=== PATIENT | female | born 1935 | race Caucasian/White ===

== ENCOUNTER 2017-02-03 16:17 | Inpatient (IN) | payer OTHER, MEDICARE ==
[~2017-02-03] VITALS: Ht 152.4 cm; Wt 65.9 kg
[2017-02-04] MEDS ORDERED: LEVO500T8 PO (10:19)
[2017-02-04] MEDS ORDERED: OMEP20TA PO (10:19)
[2017-02-04] MEDS ORDERED: LOVA20TA PO (10:19)
[2017-02-04] MEDS ORDERED: TRAM50TA PO (10:19)
[2017-02-04] MEDS ORDERED: LEVO50TA4 PO (10:19)
[2017-02-07] MEDS ORDERED: ROPIVACAINE PERI-ARTICULAR INJECTION. P-ARTICULR SCH ×5 (06:45)
[2017-02-07] MEDS ORDERED: CHLORHEXIDINE GLUCONATE 4% SOLN 120 ML BTL TOPICAL SCH (06:45)
[2017-02-07] MEDS ORDERED: DEXAMETHASONE SOD PHOS 20 MG/5 ML VIAL IV SCH (06:45)
[2017-02-07] MEDS ORDERED: TRANEXAMIC PERI-ARTICULAR 3,000 MG/NS 100 ML P-ARTICULR SCH ×2 (06:45)
[2017-02-07] MEDS ORDERED: LACTATED RINGER'S 1000 ML IV PRN (06:45)
[2017-02-07] MEDS ORDERED: METOPROLOL TARTRATE 25 MG TAB PO PRN (06:45)
[2017-02-07] MEDS ORDERED: POVIDONE IODINE 5% (ANTISEPSIS KIT) 4 APPLICATIONS EACH NARE PRN (06:45)
[2017-02-07] MEDS ORDERED: ceFAZolin 2 GM PREMIX 50 ML IV SCH (06:45)
[2017-02-07] MEDS ORDERED: CHLORHEXIDINE GLUCONATE 2 % 1 PACK (2 CLOTHS) TOPICAL PRN (06:45)
[2017-02-07] MEDS ORDERED: POVIDONE IODINE 7.5% SCRUB 118 ML BOTTLE TOPICAL SCH (06:45)
[2017-02-07] MEDS ORDERED: SODIUM CHLORID 0.9% 500 ML IV PRN (06:45)
[2017-02-07] MEDS ORDERED: VANCOMYCIN 1000 MG/NS 250 ML (for <70 kg) IV SCH ×2 (06:45)
[2017-02-07] MEDS ORDERED: TRANEXAMIC ACID INJ 870 MG in SODIUM CHLORIDE 0.9% INJ 100 ML IV SCH (06:45)
[2017-02-07] MEDS ORDERED: INSULIN HUMAN REGULAR 1,000 UNITS/10 ML VIAL SQ PRN (06:45)
[2017-02-07 06:58] VITALS: BP 117/78; PULSE 72; RESP 18; TEMP 98; O2SAT 96
[2017-02-07] MEDS ORDERED: ENOX40P SQ (06:59)
[2017-02-07] MEDS ORDERED: ASPI81CH37 CHEW (07:00)
[2017-02-07] MEDS ORDERED: NALOXONE HCL 0.4 MG/ML AMP IV PRN (07:00)
[2017-02-07] MEDS ORDERED: Post-op Orders (for Pharmacy) MISC XX ONE (07:00)
[2017-02-07] MEDS ORDERED: MORPHINE SULFATE 4 MG/ML INJ IV PUSH PRN (07:00)
[2017-02-07] MEDS ORDERED: SODIUM CHLORIDE 0.9% FLUSH 5 ML FLUSH IVF PRN (07:00)
[2017-02-07] MEDS ORDERED: diphenhydrAMINE HCL 50 MG/ML VIAL IV PRN (07:00)
[2017-02-07] MEDS ORDERED: ACETAMINOPHEN/HYDROcodone 325 MG/7.5 MG TAB PO PRN (07:00)
[2017-02-07] MEDS ORDERED: ZOLPIDEM TARTRATE 5 MG TAB PO PRN (07:00)
[2017-02-07] MEDS ORDERED: ONDANSETRON HCL 4 MG/2 ML VIAL IVP PRN (07:00)
[2017-02-07] MEDS ORDERED: BISACODYL 10 MG SUPP RECTAL PRN (07:00)
[2017-02-07] MEDS ORDERED: HYDR-3288 PO (07:01)
[2017-02-07] MEDS ORDERED: GENTAMICIN SULFATE 80 MG/2 ML VIAL ONE (07:34)
[2017-02-07 07:35] LABS: BLOOD, URINE NEG (NEG); COMMENT (UR) CULT NOT INDICATED; CULTURE IF INDICATED CULT NOT INDICATED; GLUCOSE,URINE NEG (NEG); KETONE, URINE 10 mg/dL (NEG); MUCUS URINE FEW /lpf (OCC); NITRITE,URINE NEG (NEG); PH, URINE 5.5 (5.0-8.5); SQUAMOUS EPITHELIAL CELL URINE <1 /hpf (0-5); URINE COLOR YELLOW (YELLW/STRAW)
[2017-02-07] MEDS ORDERED: MIDAZOLAM HCL 2 MG/2 ML VIAL ONE (08:02)
[2017-02-07] MEDS ORDERED: ACETAMINOPHEN 1000 MG/100 ML VIAL IV ONE (08:02)
[2017-02-07] MEDS ORDERED: FAMOTIDINE 20 MG/2 ML VIAL ONE (08:02)
[2017-02-07] MEDS ORDERED: BUPIVACAINE HCL PF 0.5% 30 ML VIAL NERV BLOCK ONE (08:52)
[2017-02-07] MEDS ORDERED: DEXAMETHASONE SOD PHOS PF 10 MG/ML VIAL IV ONE (08:52)
[2017-02-07] MEDS ORDERED: BUPIVACAINE LIPOSOME PF 1.3% 20 ML VIAL ONE (08:52)
[2017-02-07] MEDS ORDERED: ONDANSETRON HCL 4 MG/2 ML VIAL IV PUSH ONE (09:02)
[2017-02-07] MEDS ORDERED: LACTATED RINGER'S 1000 ML INJ 1,000 ML IV ONE (09:02)
[2017-02-07] MEDS ORDERED: PROPOFOL 200 MG/20 ML AMP IV ONE (09:02)
[2017-02-07] MEDS ORDERED: DO NOT ADM ANY ANTICOAGULANT DRUGS PRN (10:22)
[2017-02-07] MEDS: SODIUM CHLOR 0.9% 1000 ML INJ 1,000 ML IV SCH ×3 (10:45→19:55)
[2017-02-07] MEDS: SODIUM CHLORIDE 0.9% FLUSH 5 ML FLUSH IVF SCH ×2 (10:45→19:55)
--- NOTE | 2017-02-07 11:00 | RADRPT ---
EXAM DATE/TIME: 02/07/2017 10:42 [place] COMPARISON: No previous studies available for comparison. INDICATIONS : Post op right total knee replacement. MEDICAL HISTORY : Unobtainable. SURGICAL HISTORY : Unobtainable. ENCOUNTER: Initial ACUITY: 1 day PAIN SCORE: Non-responsive. LOCATION: Right knee. FINDINGS: Patient is status post placement of a right knee prosthesis. There is good position and alignment of the prosthesis and bony structures. The bony structures are grossly intact. Postsurgical changes are present. CONCLUSION: Good position and alignment on this postoperative examination. Renard Guo MD on February 07, 2017 at 10:57 Board Certified Radiologist. This report was verified electronically.
[2017-02-07] MEDS ORDERED: *MEPERIDINE 25 MG INJ VIAL PERIprocedural Use ONLY ONE (11:14)
[2017-02-07] MEDS ORDERED: *morphine SULFATE 8 MG/ML PERIprocedure ONLY ONE (12:19)
[2017-02-07 13:49] VITALS: BP 103/62; PULSE 79; RESP 20; TEMP 96.5; O2SAT 95
--- NOTE | 2017-02-07 13:51 | PD.CONS ---
[facility] By Dr. Serna Reason for Consult Medical management Primary Care Physician Patrick Dickey MD Diagnoses: History of Present Illness This is a 81-year-old female with a history of right knee pain secondary to osteoarthritis. She underwent elective total knee arthroplasty with nerve block by Dr. Robbin Serna who requested consultation to evaluate and manage multiple medical conditions. Anesthesia record reviewed shows she received 1200 and mild crystalloid, EBL 150 mL and urine output of 300 mL. At this time , she complains of minimal right knee pain which is on a CPM. She still feels numb on her toes. Denies nausea. All other systems reviewed negative patient states she has hyperlipidemia controlled on lovastatin, hypothyroidism stable on Synthroid, GERD stable on Prilosec and abnormal urinalysis and has been taking Levaquin for the past 4 days. She denies UTI symptoms. Initial urinalysis shows over 40 WBC and grew enterococcus species less than 50,000 colonies. Repeat urinalysis with WBC of 4 Review of Systems Except as stated in HPI: all other systems reviewed are Neg Past Family Social History Allergies: Coded Allergies: No Known Allergies (Unverified , 02/07/17) Past Medical History As previously mentioned. She is hard of hearing Past Surgical History Denies Reported Medications As previously mentioned Family History CVA Social History She does not smoke and drink alcohol Physical Exam Vital Signs Vital Signs Date Time Temp Pulse Resp B/P Pulse Ox O2 Delivery O2 Flow Rate FiO2 02/07/17 12:00 64 16 100/59 96 Room Air 02/07/17 11:45 16 100 02/07/17 11:30 68 16 113/55 100 Nasal Cannula 2 02/07/17 11:15 70 16 106/60 100 Nasal Cannula 2 02/07/17 11:00 70 16 101/64 100 Nasal Cannula 2 02/07/17 10:45 72 16 95/53 100 Nasal Cannula 2 02/07/17 10:30 80 16 92/51 99 Nasal Cannula 2 02/07/17 10:28 98.0 78 16 97/55 94 Nasal Cannula 2 02/07/17 06:58 98.0 72 18 117/78 96 Physical Exam GENERAL: This is a well-nourished, well-developed patient, in no apparent distress. Hard of hearing SKIN: No rashes, ecchymoses or lesions. Cool and dry. HEAD: Atraumatic. Normocephalic. No temporal or scalp tenderness. EYES: Pupils equal round and reactive. Extraocular motions intact. No scleral icterus. No injection or drainage. ENT: Nose without bleeding, purulent drainage or septal hematoma. Throat without erythema, tonsillar hypertrophy or exudate. Uvula midline. Airway patent. NECK: Trachea midline. No JVD or lymphadenopathy. Supple, nontender, no meningeal signs. CARDIOVASCULAR: Regular rate and rhythm without murmurs, gallops, or rubs. RESPIRATORY: Clear to auscultation. Breath sounds equal bilaterally. No wheezes , rales, or rhonchi. GASTROINTESTINAL: Abdomen soft, non-tender, nondistended. No guarding. MUSCULOSKELETAL: Extremities without clubbing, cyanosis, or edema. Right lower extremity with dry clean dressing on a CPM NEUROLOGICAL: Awake and alert. Cranial nerves II through XII intact. Motor and sensory grossly within normal limits. Five out of 5 muscle strength in all muscle groups. Normal speech. Laboratory Outside labs reviewed glucose 101 20 creatinine of 0.65 sodium 141 potassium 4.3 white count of 5.5 hemoglobin 13.2 platelet count of 172 INR 1 EKG tracing interpreted by me with sinus bradycardia Laboratory Tests Test 02/07/17 02/07/17 02/07/17 02/07/17 06:40 06:50 08:40 09:55 Urine Color YELLOW Urine Turbidity CLEAR Urine pH 5.5 Urine Specific [place] 1.022 Urine Protein TRACE Urine Glucose (UA) NEG Urine Ketones 10 Urine Occult Blood NEG Urine Nitrite NEG Urine Bilirubin NEG Urine Urobilinogen LESS THAN 2.0 Urine Leukocyte Esterase MOD Urine RBC 1 Urine WBC 4 Urine Squamous Epithelial <1 Cells Urine Mucus FEW Microscopic Urinalysis Comment CULT NOT INDICATED Blood Type B POSITIVE B POSITIVE Antibody Screen POSITIVE Crossmatch Leukocyte-Reduced Red Blood Cells Blood Bank Comment Antibody Identification Non-Specific Agglutinin Imaging Last Impressions Knee X-Ray 02/07/17 0657 Signed Impressions: Service Date/Time: Tuesday, February 07, 2017 10:42 - CONCLUSION: Good position and alignment on this postoperative examination. Renard Guo MD Assessment and Plan Assessment and Plan This is a 81-year-old female with a history of right knee pain secondary to osteoarthritis. She underwent elective total knee arthroplasty with nerve block by Dr. Robbin Serna. Stable continue postoperative care with pain management with Lortab and IV morphine, wound care, PT and DVT prophylaxis with Lovenox. Monitor for anemia CBC will be repeated in the morning. Hyperlipidemia controlled on lovastatin. We'll continue statin Hypothyroidism stable on Synthroid GERD stable on Prilosec Abnormal urinalysis. Asymptomatic. Initial urinalysis shows over 40 WBC and grew enterococcus species less than 50,000 colonies. Repeat urinalysis with WBC of 4. We will hold off with Levaquin. Discussed Condition With Patient and nursing staff Kwame Monroe MD Feb 07, 2017 13:51
--- NOTE | 2017-02-07 15:15 | PD.ORT.PN ---
Objective Vitals Vital Signs Date Time Temp Pulse Resp B/P Pulse Ox O2 Delivery O2 Flow Rate FiO2 02/07/17 13:49 96.5 79 20 103/62 95 02/07/17 12:00 64 16 100/59 96 Room Air 02/07/17 11:45 16 100 02/07/17 11:30 68 16 113/55 100 Nasal Cannula 2 02/07/17 11:15 70 16 106/60 100 Nasal Cannula 2 02/07/17 11:00 70 16 101/64 100 Nasal Cannula 2 02/07/17 10:45 72 16 95/53 100 Nasal Cannula 2 02/07/17 10:30 80 16 92/51 99 Nasal Cannula 2 02/07/17 10:28 98.0 78 16 97/55 94 Nasal Cannula 2 02/07/17 06:58 98.0 72 18 117/78 96 I/O 02/06/17 02/06/17 02/06/17 02/07/17 02/07/17 02/07/17 07:00 15:00 23:00 07:00 15:00 23:00 Intake Total 50 ml Output Total 250 ml Balance -200 ml Intake IV Total 50 ml Output Urine Total 250 ml Imaging Last 24 hours Impressions Knee X-Ray 02/07/17 0657 Signed Impressions: Service Date/Time: Tuesday, February 07, 2017 10:42 - CONCLUSION: Good position and alignment on this postoperative examination. Renard Guo MD Assessment & Plan Ortho Post Op Day #: 0 Problem List: Assessment and Plan s/p R TKA wbat daily dressing changes lovenox d/c planning home vs snf f/up dr eubanks 2 weeks Robbin Vera Feb 07, 2017 15:15
--- NOTE | 2017-02-07 15:17 | HHI.DCPOC ---
Discharge Care Plan Diagnosis: (1) Primary localized osteoarthrosis, lower leg Your Health Problems Are: Difficulty with ADL Goals to Promote Your Health * To prevent worsening of your condition and complications * To maintain your health at the optimal level Directions to Meet Your Goals Take your medications as prescribed Follow your dietary instruction Follow activity as directed Keep your appointments as scheduled Take your immunizations and boosters as scheduled If your symptoms worsen call your PCP, if no PCP go to Urgent Care Center or Emergency Room Smoking is Dangerous to Your Health. Avoid second hand smoke Call the 24-hour hour crisis hotline for domestic abuse at Robbin Vera Feb 07, 2017 15:17
--- NOTE | 2017-02-07 15:18 | HHI.FF ---
Face to Face Verification Diagnosis: (1) Primary localized osteoarthrosis, lower leg Physical Therapy Gait training, Safety evaluation, Transfer training, bed to chair Knee: Total knee, Protocol: Right, Full weight bearing Right LE Weight Bearing: WB as tolerated Nursing RN: 3 days/week x 2 weeks Nursing: Linda teaching, Dressing changes Dressing Changes: Daily dressing change I have seen patient Fior Ashby on 02/07/17. My clinical findings support the need for the requested home health care services because: Limited ability to care for self High risk of falls I certify that my clinical findings support that this patient is homebound because: Post-op weakness Unsteady gait/balance Robbin Vera Feb 07, 2017 15:18
[2017-02-07] MEDS ORDERED: CPMMACHINE (15:19)
[2017-02-07] MEDS ORDERED: WALKER WHEELS/F1 MIS (15:19)
[2017-02-07] MEDS ORDERED: COMMODE 3-IN-11 MIS (15:19)
[2017-02-07 16:00] VITALS: BP 93/57; PULSE 75; RESP 20; TEMP 95.8; O2SAT 95
[2017-02-07] MEDS: ACETAMINOPHEN/HYDROcodone 325 MG/7.5 MG TAB PO PRN (17:24)
[2017-02-07 20:00] VITALS: BP 90/53; PULSE 57; RESP 16; TEMP 96.6; O2SAT 94
[2017-02-08] VITALS: BP 94/56; PULSE 52; RESP 16; TEMP 96.2; O2SAT 94
[2017-02-08 04:00] VITALS: BP 106/67; PULSE 64; RESP 16; TEMP 96.9; O2SAT 97
[2017-02-08 04:51] LABS: HEMATOCRIT 32.6 % (35.0-46.0); MEAN CELL VOLUME 93.4 FL (80.0-100.0); MEAN CORPUSCULAR HEMOGLOBIN 31.9 PG (27.0-34.0); MEAN CORPUSCULAR HGB CONC 34.1 % (32.0-36.0); PLATELET COUNT 206 TH/MM3 (150-450); RED BLOOD COUNT 3.49 MIL/MM3 (4.00-5.30); RED CELL DISTRIBUTION WIDTH 14.3 % (11.6-17.2); REVIEW FLAG FINAL; WHITE BLOOD COUNT 11.3 TH/MM3 (4.0-11.0)
[2017-02-08 05:03] LABS: BICARBONATE 22.2 MEQ/L (21.0-32.0); POTASSIUM 4.1 MEQ/L (3.5-5.1)
[2017-02-08] MEDS: LEVOTHYROXINE SODIUM 50 MCG TAB PO SCH (05:30)
[2017-02-08] MEDS: ACETAMINOPHEN/HYDROcodone 325 MG/7.5 MG TAB PO PRN ×5 (05:30→21:55)
[2017-02-08] MEDS: MAGNESIUM HYDROXIDE SUSP 30 ML CUP PO PRN ×2 (05:30→21:54)
[2017-02-08 08:00] VITALS: BP 105/63; PULSE 53; RESP 18; TEMP 96.2; O2SAT 94
[2017-02-08] MEDS: SODIUM CHLORIDE 0.9% FLUSH 5 ML FLUSH IVF SCH ×2 (09:00→21:57)
[2017-02-08] MEDS: PANTOPRAZOLE SOD 20 MG DELAYED RELEASE TAB PO SCH (09:18)
[2017-02-08] MEDS: ENOXAPARIN SODIUM 40 MG/0.4 ML SYRINGE SQ SCH (09:18)
--- NOTE | 2017-02-08 10:14 | HHI.PR ---
Subjective Remarks Follow-up orthopedic surgery. States she is doing okay ambulating. Discussed with RN Objective Vitals Vital Signs Date Time Temp Pulse Resp B/P Pulse Ox O2 Delivery O2 Flow Rate FiO2 02/08/17 08:00 96.2 53 18 105/63 94 02/08/17 04:00 96.9 64 16 106/67 97 02/08/17 00:00 96.2 52 16 94/56 94 02/07/17 20:00 96.6 57 16 90/53 94 02/07/17 16:00 95.8 75 20 93/57 95 02/07/17 13:49 96.5 79 20 103/62 95 02/07/17 12:00 64 16 100/59 96 Room Air 02/07/17 11:45 16 100 02/07/17 11:30 68 16 113/55 100 Nasal Cannula 2 02/07/17 11:15 70 16 106/60 100 Nasal Cannula 2 02/07/17 11:00 70 16 101/64 100 Nasal Cannula 2 02/07/17 10:45 72 16 95/53 100 Nasal Cannula 2 02/07/17 10:30 80 16 92/51 99 Nasal Cannula 2 02/07/17 10:28 98.0 78 16 97/55 94 Nasal Cannula 2 I/O 02/07/17 02/07/17 02/07/17 02/08/17 02/08/17 02/08/17 07:00 15:00 23:00 07:00 15:00 23:00 Intake Total 50 ml 1077 ml 1115 ml Output Total 250 ml 825 ml 650 ml Balance -200 ml 252 ml 465 ml Intake Oral 240 ml 120 ml IV Total 50 ml 837 ml 995 ml Output Urine Total 250 ml 825 ml 650 ml # Bowel Movements 0 Result Diagram: 02/08/17 0359 02/08/17 0359 Imaging Last Impressions Knee X-Ray 02/07/17 0657 Signed Impressions: Service Date/Time: Tuesday, February 07, 2017 10:42 - CONCLUSION: Good position and alignment on this postoperative examination. Renard Guo MD Objective Remarks GENERAL: This is a well-nourished, well-developed patient, in no apparent distress. Hard of hearing SKIN: No rashes, ecchymoses or lesions. Cool and dry. HEAD: Atraumatic. Normocephalic. No temporal or scalp tenderness. EYES: Pupils equal round and reactive. Extraocular motions intact. No scleral icterus. No injection or drainage. ENT: Nose without bleeding, purulent drainage or septal hematoma. Throat without erythema, tonsillar hypertrophy or exudate. Uvula midline. Airway patent. NECK: Trachea midline. No JVD or lymphadenopathy. Supple, nontender, no meningeal signs. CARDIOVASCULAR: Regular rate and rhythm without murmurs, gallops, or rubs. RESPIRATORY: Clear to auscultation. Breath sounds equal bilaterally. No wheezes , rales, or rhonchi. GASTROINTESTINAL: Abdomen soft, non-tender, nondistended. No guarding. MUSCULOSKELETAL: Extremities without clubbing, cyanosis, or edema. NEUROLOGICAL: Awake and alert. Cranial nerves II through XII intact. Motor and sensory grossly within normal limits. Five out of 5 muscle strength in all muscle groups. Normal speech. A/P Assessment and Plan This is a 81-year-old female with a history of right knee pain secondary to osteoarthritis. She underwent elective total knee arthroplasty with nerve block by Dr. Robbin Serna. Stable continue postoperative care with pain management with Lortab and IV morphine, wound care, PT and DVT prophylaxis with Lovenox. Postoperative anemia secondary to acute blood loss . Asymptomatic. Repeat CBC in the morning Hyperlipidemia controlled on lovastatin. We'll continue statin Hypothyroidism stable on Synthroid GERD stable on Prilosec Hyperglycemia. Obtain A1c Abnormal urinalysis. Asymptomatic. Initial urinalysis shows over 40 WBC and grew enterococcus species less than 50,000 colonies. Repeat urinalysis with WBC of 4. Discontinue Levaquin. Discharge Planning Discharge per orthopedic surgery Kwame Monroe MD Feb 08, 2017 10:14
--- NOTE | 2017-02-08 10:27 | PD.ORT.PN ---
Subjective Subjective Remarks Patient comfortable. Pain controlled. OOB sitting on recliner. Objective Vitals Vital Signs Date Time Temp Pulse Resp B/P Pulse Ox O2 Delivery O2 Flow Rate FiO2 02/08/17 08:00 96.2 53 18 105/63 94 02/08/17 04:00 96.9 64 16 106/67 97 02/08/17 00:00 96.2 52 16 94/56 94 02/07/17 20:00 96.6 57 16 90/53 94 02/07/17 16:00 95.8 75 20 93/57 95 02/07/17 13:49 96.5 79 20 103/62 95 02/07/17 12:00 64 16 100/59 96 Room Air 02/07/17 11:45 16 100 02/07/17 11:30 68 16 113/55 100 Nasal Cannula 2 02/07/17 11:15 70 16 106/60 100 Nasal Cannula 2 02/07/17 11:00 70 16 101/64 100 Nasal Cannula 2 02/07/17 10:45 72 16 95/53 100 Nasal Cannula 2 02/07/17 10:30 80 16 92/51 99 Nasal Cannula 2 02/07/17 10:28 98.0 78 16 97/55 94 Nasal Cannula 2 I/O 02/07/17 02/07/17 02/07/17 02/08/17 02/08/17 02/08/17 07:00 15:00 23:00 07:00 15:00 23:00 Intake Total 50 ml 1077 ml 1115 ml Output Total 250 ml 825 ml 650 ml Balance -200 ml 252 ml 465 ml Intake Oral 240 ml 120 ml IV Total 50 ml 837 ml 995 ml Output Urine Total 250 ml 825 ml 650 ml # Bowel Movements 0 Result Diagram: 02/08/17 0359 02/08/17 0359 Imaging Last 24 hours Impressions Knee X-Ray 02/07/17 0657 Signed Impressions: Service Date/Time: Tuesday, February 07, 2017 10:42 - CONCLUSION: Good position and alignment on this postoperative examination. Renard Guo MD Objective Remarks Right knee dressing and ashleigh wrap C/D/I calves soft negative Homans NVI Assessment & Plan Assessment and Plan s/p R TKA POD #1 wbat daily dressing changes lovenox d/c planning home vs snf ( pt requesting to go Home) f/up dr eubanks 2 weeks Luis Fernando Luciano Feb 08, 2017 10:27
[2017-02-08 12:00] VITALS: BP 98/57; PULSE 70; RESP 20; TEMP 97.8; O2SAT 91
[2017-02-08] MEDS: SODIUM CHLOR 0.9% 1000 ML INJ 1,000 ML IV SCH ×2 (13:00→21:56)
[2017-02-08 16:00] VITALS: BP 86/48; PULSE 77; RESP 19; TEMP 97.5; O2SAT 93
[2017-02-08 19:07] LABS: HEMOGLOBIN A1a 1.2 %; HEMOGLOBIN A1b 1.8 %; HEMOGLOBIN Ao 84.1 %; HEMOGLOBIN LA1C 1.9 %; HEMOGLOBIN P3 4.1 %
[2017-02-08 19:10] VITALS: BP 102/51; PULSE 68; RESP 18; TEMP 98.2; O2SAT 92
[2017-02-08] MEDS: MULTIVITAMINS/MINERALS THERAPEUTIC TAB PO SCH (21:54)
[2017-02-08] MEDS: DOCUSATE SODIUM 100 MG CAP PO SCH (21:55)
[2017-02-09 00:06] VITALS: BP 104/64; PULSE 73; RESP 17; TEMP 98.5; O2SAT 96
[2017-02-09] MEDS: ACETAMINOPHEN/HYDROcodone 325 MG/7.5 MG TAB PO PRN ×3 (03:14→12:01)
[2017-02-09 03:58] VITALS: BP 101/52; PULSE 82; RESP 17; TEMP 98.1; O2SAT 92
[2017-02-09] MEDS: LEVOTHYROXINE SODIUM 50 MCG TAB PO SCH (05:11)
[2017-02-09 08:00] VITALS: BP 123/70; PULSE 68; RESP 18; TEMP 97.8; O2SAT 93
--- NOTE | 2017-02-09 08:06 | PD.ORT.PN ---
Subjective Post Op Day #: 2 Subjective Remarks pain tolerable with meds. Objective Vitals Vital Signs Date Time Temp Pulse Resp B/P Pulse Ox O2 Delivery O2 Flow Rate FiO2 02/09/17 03:58 98.1 82 17 101/52 92 02/09/17 00:06 98.5 73 17 104/64 96 02/08/17 19:10 98.2 68 18 102/51 92 02/08/17 18:40 Room Air 02/08/17 16:00 97.5 77 19 86/48 93 02/08/17 12:00 97.8 70 20 98/57 91 I/O 02/08/17 02/08/17 02/08/17 02/09/17 02/09/17 02/09/17 07:00 15:00 23:00 07:00 15:00 23:00 Intake Total 1115 ml 480 ml 898 ml 977 ml Output Total 650 ml Balance 465 ml 480 ml 898 ml 977 ml Intake Oral 120 ml 480 ml 360 ml 360 ml IV Total 995 ml 538 ml 617 ml Output Urine Total 650 ml # Voids 2 3 # Bowel Movements 1 Result Diagram: 02/08/17 0359 02/08/17 0359 Imaging Last 24 hours Impressions Knee X-Ray 02/07/17 0657 Signed Impressions: Service Date/Time: Tuesday, February 07, 2017 10:42 - CONCLUSION: Good position and alignment on this postoperative examination. Renard Guo MD Objective Remarks in bed, nad incision no erythema, no drainage calves soft negative Homans NVI Assessment & Plan Ortho Post Op Day #: 2 Problem List: Assessment and Plan s/p R TKA POD #2 wbat daily dressing changes lovenox d/c planning home with [facility] and pt - cleared today if pain under control after PT rx in chart f/up dr eubanks 2 weeks Robbin Vera Feb 09, 2017 08:06
--- NOTE | 2017-02-09 08:54 | HHI.PR ---
Subjective Remarks Follow-up orthopedic surgery and hyperglycemia. She is doing okay cleared for discharge by orthopedic surgery. Still no BM by passing gas. Patient made aware of A1c 6.2 need to cut down on carbohydrates and start regular exercise discussed with RN Objective Vitals Vital Signs Date Time Temp Pulse Resp B/P Pulse Ox O2 Delivery O2 Flow Rate FiO2 02/09/17 03:58 98.1 82 17 101/52 92 02/09/17 00:06 98.5 73 17 104/64 96 02/08/17 19:10 98.2 68 18 102/51 92 02/08/17 18:40 Room Air 02/08/17 16:00 97.5 77 19 86/48 93 02/08/17 12:00 97.8 70 20 98/57 91 I/O 02/08/17 02/08/17 02/08/17 02/09/17 02/09/17 02/09/17 07:00 15:00 23:00 07:00 15:00 23:00 Intake Total 1115 ml 480 ml 898 ml 977 ml Output Total 650 ml Balance 465 ml 480 ml 898 ml 977 ml Intake Oral 120 ml 480 ml 360 ml 360 ml IV Total 995 ml 538 ml 617 ml Output Urine Total 650 ml # Voids 2 3 # Bowel Movements 1 Result Diagram: 02/08/17 0359 02/08/17 0359 Imaging Last Impressions Knee X-Ray 02/07/17 0657 Signed Impressions: Service Date/Time: Tuesday, February 07, 2017 10:42 - CONCLUSION: Good position and alignment on this postoperative examination. Renard Guo MD Objective Remarks GENERAL: This is a well-nourished, well-developed patient, in no apparent distress. Hard of hearing SKIN: No rashes, ecchymoses or lesions. Cool and dry. HEAD: Atraumatic. Normocephalic. No temporal or scalp tenderness. EYES: Pupils equal round and reactive. Extraocular motions intact. No scleral icterus. No injection or drainage. ENT: Nose without bleeding, purulent drainage or septal hematoma. Throat without erythema, tonsillar hypertrophy or exudate. Uvula midline. Airway patent. NECK: Trachea midline. No JVD or lymphadenopathy. Supple, nontender, no meningeal signs. CARDIOVASCULAR: Regular rate and rhythm without murmurs, gallops, or rubs. RESPIRATORY: Clear to auscultation. Breath sounds equal bilaterally. No wheezes , rales, or rhonchi. GASTROINTESTINAL: Abdomen soft, non-tender, nondistended. No guarding. MUSCULOSKELETAL: Extremities without clubbing, cyanosis, or edema. NEUROLOGICAL: Awake and alert. Cranial nerves II through XII intact. Motor and sensory grossly within normal limits. Five out of 5 muscle strength in all muscle groups. Normal speech. Nonfocal A/P Assessment and Plan This is a 81-year-old female with a history of right knee pain secondary to osteoarthritis. She underwent elective total knee arthroplasty with nerve block by Dr. Robbin Serna. Stable continue postoperative care with pain management with Lortab and IV morphine, wound care, PT and DVT prophylaxis with Lovenox. Postoperative anemia secondary to acute blood loss . Asymptomatic. Repeat CBC Hyperlipidemia controlled on lovastatin. We'll continue statin Hypothyroidism stable on Synthroid GERD stable on Prilosec Hyperglycemia. A1c 6.2. Advised to cut back on carbs and start regular exercise. Repeat A1c in 3 months Abnormal urinalysis. Asymptomatic. Initial urinalysis shows over 40 WBC and grew enterococcus species less than 50,000 colonies. Repeat urinalysis with WBC of 4. Discontinue Levaquin. Discharge Planning Cleared for discharge per orthopedic surgery and pain management by Kwame Stevens MD Feb 09, 2017 08:54
[2017-02-09] MEDS: SODIUM CHLORIDE 0.9% FLUSH 5 ML FLUSH IVF SCH (09:00)
[2017-02-09] MEDS: SODIUM CHLOR 0.9% 1000 ML INJ 1,000 ML IV SCH (09:00)
[2017-02-09 09:32] LABS: HEMATOCRIT 32.5 % (35.0-46.0); MEAN CELL VOLUME 93.7 FL (80.0-100.0); MEAN CORPUSCULAR HEMOGLOBIN 30.5 PG (27.0-34.0); MEAN CORPUSCULAR HGB CONC 32.6 % (32.0-36.0); PLATELET COUNT 198 TH/MM3 (150-450); RED BLOOD COUNT 3.47 MIL/MM3 (4.00-5.30); RED CELL DISTRIBUTION WIDTH 14.7 % (11.6-17.2); REVIEW FLAG FINAL; WHITE BLOOD COUNT 8.1 TH/MM3 (4.0-11.0)
[2017-02-09] MEDS: ENOXAPARIN SODIUM 40 MG/0.4 ML SYRINGE SQ SCH (09:43)
[2017-02-09] MEDS: PANTOPRAZOLE SOD 20 MG DELAYED RELEASE TAB PO SCH (09:43)
[2017-02-09] MEDS: DOCUSATE SODIUM 100 MG CAP PO SCH (09:43)
[2017-02-09] MEDS: MULTIVITAMINS/MINERALS THERAPEUTIC TAB PO SCH (09:43)
[2017-02-09 09:52] LABS: BICARBONATE 26.3 MEQ/L (21.0-32.0); POTASSIUM 3.3 MEQ/L (3.5-5.1)
--- NOTE | 2017-02-09 10:04 | MP ---
cc: MADYSON JURADO Corrected Copy: 02/11/17 DATE OF SURGERY 02/07/17 PREOPERATIVE DIAGNOSIS Right knee osteoarthritis POSTOPERATIVE DIAGNOSES Right knee osteoarthritis PROCEDURE Right total knee arthroplasty SURGEON Dr. Madyson Jurado PANEL MONITOR MALCOM Gustafson ANESTHESIA Spinal with a femoral nerve block. ESTIMATED BLOOD LOSS 50 mL TOURNIQUET TIME 40 minutes at 250 mmHg COMPLICATIONS None. IMPLANTS USED DePuy attune size four posterior stabilized femoral component size four rotating platform tibia baseplate, size 6 mm polyethylene tibial insert, size 35 patella. JUSTIFICATION The patient is an 81-year-old female with history of severe end-stage osteoarthritis involving the right knee. She has severe disabling pain standing, walking, ambulation with activities and severe pain at rest. She has failed greater than 3 months of nonoperative conservative to include medication therapy, injections, ambulatory assisted aids, home exercise program, activity modification. The patient is not overweight. X-ray of the right knee reveal severe end-stage osteoarthritis of [id number] joint space narrowing, subchondral sclerosis, subchondral cyst osteophyte formation with varus deformity. The patient was counseled as to risks, benefits and alternative to total knee arthroplasty. The risks were discussed which include but not limited to anesthesia, bleeding, infection, damage to nerves, blood vessels, pain, stiffness, , blood clots, pulmonary embolism and even . The patient's pain is severe. She favors the benefits over the risks. She did wish to proceed with surgery. PROCEDURE IN DETAIL A written consent was obtained. The patient identified by name, taken to the operating room, placed supine on the operating table. Spinal anesthesia was administered and a femoral nerve block anesthesia was administered by Dr. Hutchison from anesthesia. The patient was administered 2 grams of IV Ancef and 1 gram of IV vancomycin. A well-padded tourniquet was placed on the right thigh. The right lower extremity was prepped and draped using isopropyl alcohol, Hibiclens solution and Chloraprep solution. After time-out was performed, an Esmarch bandage was used to exsanguinate the right lower extremity. Tourniquet was inflated to 250 mmHg. A longitudinal incision was made over the anterior aspect of the right knee. A medial parapatellar arthrotomy was performed. The patella was everted. A patellar resection guide was used to resect 7 mm of patella. A size 35 mm guide was placed. Three drills were placed and a 35 mm trial fit well. Attention was turned to the femur where an intramedullary guide wire was placed. The distal femoral guide was set to remove 10 mm of distal femur 5 degrees off the anatomic valgus axis alignment. An arthroscopic biter was used to perform the distal femoral cut. Attention was turned the tibia where an extramedullary tibial guide was used to resect 5 mm off the lowest portion of the medial tibial plateau. The tibia guide was pinned in place and tibia cut was performed. A 5-mm spacer block showed full extension. Attention was turned back to the femur where the AP sizing block measured a size 4. The anterior reference 3 degree external rotation guide was used to pin a size [address]. Anterior posterior chamfer cuts were performed, a size 4 PCL box was cut and pinned in place. PCL was boxed out with an oscillating saw. The medial lateral meniscus remnants were removed as well as bone and soft tissue debris from posterior portion of the knee. A size 4 tibia base was pinned. The tibia was drilled and punched. Trial components were evaluated and trial component cemented in place. With the 6-mm tibial insert, the leg achieved full extension of 0 degrees and flexion 140, no evidence of tibial lift-off, varus-valgus appeared appropriate and symmetric. The patella was noted to track centrally. The tour8 was deflated. Bovie cautery was used for hemostasis. Surgical components thoroughly irrigated with sterile saline pulse lavage antibiotic impregnated solution. The arthrotomy incision was closed with #1 Vicryl suture. Subcutaneous layer with 2-0 Vicryl suture. Skin was closed with Dermabond. Sterile dressing applied. The patient tolerated the procedure well with no intraoperative complications noted. Javid Vera, physician audiology assistant, was present during the entire procedure to include patient positioning and procedure itself. The medical necessity of a physician audiology assistant was indicated due to the complexity of the procedure. He assisted with appropriate manipulation of the leg and also retraction of muscle, tendon, bone and neurovascular structure. He assisted with both resection of bone and also implantation of the prosthetic replacement. MD EAMON Snider/ /10:10 AM /12:16 PM
[2017-02-09 12:00] VITALS: BP 104/58; PULSE 76; RESP 18; TEMP 99.3; O2SAT 96
[2017-02-09 13:01] VITALS: RESP 18
[2017-02-09] MEDS ORDERED: POTASSIUM CHLORIDE 20 MEQ CONTROLLED RELEASE TAB PO ONE (13:15)
== END 2017-02-09 16:48 | disposition home health service (06) | DRG 470 ==
LOC: HSDI 02-07 06:09 → N06B 02-07 13:05
PROVIDERS: ADMIT Orthopaedic Surgery Sports Medicine; ATTEND Orthopaedic Surgery Sports Medicine
PROC: 3E0T3CZ (ICD-10-PCS; 2017-02-07)
PROC: 0SRC0J9 Replacement of Right Knee Joint with Synthetic Substitute, Cemented, Open Approach (ICD-10-PCS; principal; 2017-02-07 08:07)
DX: M17.11 Unilateral primary osteoarthritis, right knee (principal); D62 Acute posthemorrhagic anemia; E03.9 Hypothyroidism, unspecified; E78.5 Hyperlipidemia, unspecified; K21.9 Gastro-esophageal reflux disease without esophagitis; H91.90 Unspecified hearing loss, unspecified ear
CPT/HCPCS: 73560; 80048; 81001; 83036; 85027; 86077; 86850; 86870; 86900; 86901; 86920; 86922; 94150; C1776; C9290; J0131; J0171; J0690; J0735; J1100; J1580; J1650; J1885; J2175; J2250; J2270; J2405; J2795; J3010; J3370; J7030; J7050; J7120; L1830